=== PATIENT | female | born 1965 | race Asian ===

== ENCOUNTER 2017-11-14 08:16 | Day surgery (SDC) | payer OTHER ==
[2017-11-14] MEDS ORDERED: PROPOFOL 200 MG/20 ML VIAL As Ordered ×2 (08:35→10:44)
[2017-11-14] MEDS: NS 1,000 ML IV (08:54)
[2017-11-14] MEDS ORDERED: PHENYLephrine HCL 500 MCG/5 ML (100MCG/ML) SYRINGE (J2370) As Ordered (10:12)
== END 2017-11-14 11:11 | disposition home or self-care (01) ==
LOC: M OPP 08:16
DX: Z12.11 Encounter for screening for malignant neoplasm of colon (principal); K21.9 Gastro-esophageal reflux disease without esophagitis; R06.83 Snoring; Z80.49 Family history of malignant neoplasm of other genital organs
CPT/HCPCS: G0121